=== PATIENT | male | born 1940 | race Caucasian/White ===

== ENCOUNTER 2017-08-31 11:07 | Emergency (ER) | payer OTHER ==
[~2017-08-31] VITALS: Ht 182.9 cm; Wt 98.0 kg
[2017-08-31] MEDS ORDERED: OMEPRAZOLE20 M1 (11:25)
[2017-08-31] MEDS ORDERED: EFFER-K 20 MEQ20 MEQ (11:25)
[2017-08-31] MEDS ORDERED: CARVEDILOL25 MG ×2 (11:25→11:26)
[2017-08-31] MEDS ORDERED: FUROSEMIDE40 MG (11:26)
[2017-08-31] MEDS ORDERED: LOSARTAN POTASS50 MG (11:26)
[2017-08-31] MEDS ORDERED: FERRETTS325 MG (11:26)
[2017-08-31] MEDS ORDERED: COUMADIN6 MG (11:27)
[2017-08-31] MEDS ORDERED: OMEPRAZOLE20 MG (11:27)
[2017-08-31] MEDS ORDERED: ROSUVASTATIN CA10 MG (11:27)
[2017-08-31] MEDS ORDERED: ASPIR 8181 MG (11:27)
[2017-08-31] MEDS ORDERED: MELATONIN10 MG (11:28)
[2017-08-31] MEDS ORDERED: PROSCAR5 MG (11:28)
== END 2017-09-01 10:12 | disposition home or self-care (01) ==
LOC: ER 11:07
DX: K92.1 Melena (principal); D50.0 Iron deficiency anemia secondary to blood loss (chronic); Z79.01 Long term (current) use of anticoagulants; D64.89 Other specified anemias